=== PATIENT | male | born 1965 | race Caucasian/White ===

== ENCOUNTER 2021-05-12 07:33 | Outpatient (CLI) | payer OTHER, SELFPAY ==
--- NOTE | ~2021-05-12 | MR_ITS ---
EXAMINATION: MR shoulder RT wo con DATE: 05/12/2021 09:16 INDICATION: Right shoulder pain TECHNIQUE: Magnetic resonance imaging (MRI) of the right shoulder was performed without intravenous c ontrast. Sequences included axial PD-weighted FS FSE, coronal oblique PD-weighted FS FSE, coronal obl ique T2-weighted FS FSE, sagittal PD-weighted FS FSE, and sagittal T1-weighted SE. COMPARISON: None. FINDINGS: Coracoacromial arch: The acromion undersurface is flat in morphology (type I) with lateral downsloping. Moderate-sized ant erior and small lateral subacromial spurs at the acromial insertion of the coracoacromial ligament wh ich is mildly thickened at its acromial insertion. Mild acromioclavicular osteoarthritis. Rotator cuff: Moderate supraspinatus and infraspinatus tendinopathy with full-thickness tear extending along the cr itical zone of the supraspinatus and anterior infraspinatus tendons approximately 2 cm from the footp late. Full-thickness component of the tear 1.8 cm anterior to posterior and up to 6 mm medial to late ral width. The tear extends as a partial-thickness articular sided tear and additional 1 cm posterior ly into the infraspinatus tendon. The teres minor tendon is normal. Severe subscapularis tendinopathy without discrete tear. Mild medial retraction and/or atrophy of the supraspinatus muscle belly which demonstrates a concave cephalad margin at the supraspinatus fossa but asymmetric increased fatty atr ophy. Biceps tendon, glenoid labrum and glenohumeral cartilage: Moderate tendinopathy and partial-thickness tear of the long head biceps tendon which appears contigu ous but diminutive in cross-sectional diameter at the junction of the intra and extra-articular porti ons of the tendon. There is a tear of the 11:00-9:00 position of the posterior glenoid labrum. Additi onal tear at the base of the 5:30-4:00 position of the anteroinferior labrum which arises at the alex dral labral junction. Mild partial-thickness cartilage loss with minimal chondral surface regularity along the central to posterior superior glenoid. Additional mild partial-thickness cartilage loss wit h smooth chondral surface along the inferomedial and anterosuperior aspect of the humeral head. Fluid: fluid in the long head biceps tendon sheath which could be related to either a small glenohumeral lisa nt effusion and/or bicipital tenosynovitis. No loose osteochondral bodies. Is also extension of small amount of fluid into the subacromial/subdeltoid bursa via the full-thickness rotator cuff tear. Bones: Normal marrow signal with no edema, fracture or pathologic marrow replacing process. IMPRESSION: 1. Moderate-sized full-thickness tear along the critical zone of the supraspinatus and anterior infra spinatus tendon which could be related to acromial impingement with small to moderate-sized subacromi al spurs. 2. Severe subscapularis tendinopathy without discrete tear. 3. Moderate tendinopathy and partial thickness tear of the long head biceps tendon which appears to i nvolve greater than 50% the cross-sectional area of the tendon. 4. Mild glenohumeral osteoarthritis with tears of the posterior and anteroinferior labrum. Reviewed, dictated and finalized at location A. IMPRESSION: 1. Moderate-sized full-thickness tear along the critical zone of the supraspina tus and anterior infraspinatus tendon which could be related to acromial imping ement with small to moderate-sized subacromial spurs. 2. Severe subscapularis tendinopathy without discrete tear. 3. Moderate tendinopathy and partial thickness tear of the long head biceps ten don which appears to involve greater than 50% the cross-sectional area of the t endon. 4. Mild glenohumeral osteoarthritis with tears of the poste
== END 2021-05-12 07:34 | disposition home or self-care (01) ==
LOC: ANHIMG 07:41
PROVIDERS: PCP Family Medicine; Visit Provider Orthopaedic Surgery
DX: M25.511 Pain in right shoulder (principal); M19.011 Primary osteoarthritis, right shoulder; M75.101 Unspecified rotator cuff tear or rupture of right shoulder, not specified as traumatic; M75.81 Other shoulder lesions, right shoulder; S46.211A Strain of muscle, fascia and tendon of other parts of biceps, right arm, initial encounter; S43.431A Superior glenoid labrum lesion of right shoulder, initial encounter
CPT/HCPCS: 73221